=== PATIENT | male | born 2005 | race Caucasian/White ===

== ENCOUNTER 2023-04-23 20:10 | Emergency (ER) | payer BC, OTHER, SELFPAY ==
[2023-04-23 20:27] VITALS: BP 114/70; PULSE 99; RESP 16; TEMP 36.9; O2SAT 99; BMI 17.6
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
[2023-04-23] MEDS: ONDANSETRON 4 MG RAPDIS TABLET SL (21:35)
[2023-04-23] MEDS: ACETAMINOPHEN 500 MG TABLET 1000 MG PO (21:35)
== END 2023-04-23 20:38 | disposition home or self-care (01) ==
PROVIDERS: Emergency Provider Emergency Medicine
DX: S06.0X0A Concussion without loss of consciousness, initial encounter (principal); V47.5XXA Car driver injured in collision with fixed or stationary object in traffic accident, initial encounter
CPT/HCPCS: 99283

== ENCOUNTER 2023-09-19 13:32 | Outpatient (OUT) | payer BC, OTHER, SELFPAY ==
--- OUTSIDE RECORDS SUMMARY | 2023-09-19 13:41 | XMS_ITS | CCD ---
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 Name Role Phone JANETT ACOSTA Unavailable Unavailable HOUSE, JUAN PABLO Unavailable Unavailable HOUSE, JUAN PABLO Unavailable Unavailable SEVERO, JANETT Tovar Unavailable Unavailable HOUSE, JUAN PABLO Unavailable Unavailable HOUSE, JUAN PABLO Unavailable Unavailable HOUSE, DR GARZA Admitting Unavailable HOUSE, DR GARZA Attending Unavailable HOUSE, DR GARZA Consulting Unavailable HOUSE, DR GARZA Primary Care Unavailable HOUSE, DR GARZA Admitting Unavailable HOUSE, DR GARZA Attending Unavailable HOUSE, DR GARZA Consulting Unavailable HOUSE, DR GARZA Primary Care Unavailable MISC, DR TAYLOR Admitting Unavailable HOUSE, DR GARZA Primary Care Unavailable MISC, DR TAYLOR Attending Unavailable MISC, DR TAYLOR Consulting Unavailable ANNETTE, DR CORONADO Consulting Unavailable ANNETTE, DR CORONADO Admitting Unavailable HOUSE, DR GARZA Primary Care Unavailable ANNETTE, DR CORONADO Attending Unavailable Aysha, Jim Consulting Unavailable DANIS, DR DIANE Ramirez Attending Unavailable DANIS, DR DIANE Ramirez Consulting Unavailable DANIS, DR DIANE Ramirez Admitting Unavailable HOUSE, DR GARZA Primary Care Unavailable HOUSE, DR GARZA Admitting Unavailable HOUSE, DR GARZA Attending Unavailable HOUSE, DR GARZA Consulting Unavailable HOUSE, DR GARZA Primary Care Unavailable Lourdes Lombardo Unavailable No, Physician Primary Care Provider Unavailabl e NO, PHYSICIAN Primary Care Unavailable CHANNING MARIE Attending Unavailable IVET GILBERT Attending Unavailable DIANE CEDENO Attending Unavailable DIANE CEDENO Attending Unavailable Marine Devlin Referring Unavailable Marine Devlin Attending Unavailable Marine Devlin Admitting Unavailable Allergies Allergy Classification Reported Allergen(s) Allergy Type Date of Onset Reaction(s) Facility (1 source) Lactose Drug Allergy Unknown [place] Spirits Other Medications Current Medications Medication Drug Class(es) Dates Sig (Normalized) Sig (Original) [id number] 200 actuat albuterol 0.09 mg/actuat metered dose inhaler (2 sources) beta2-Adrenergic Agonist Start: 06-26-2022 End: 07-03-2022 take 2 puff(s) by inhalation four times daily albuterol 90 mcg/actuation inhaler Indications: Bronchitis Inhale 2 (two) puffs 4 (four) times a day for 7 days . 18 g 0 06/26/2022 07/03/2022 Active Start: 01-29-2022 take 2 puff(s) by in halation every four hours as needed Albuterol Sulfate HFA 108 (90 Base) MCG/ACT 2 puffs as needed Inhalation every 4 hrs Jan, Active Brompheniramine / Pseudoephedrine (1 source) alpha-Adrenergic Agonist Start: 01-29-2022 take 5 mL by mouth every six hours as needed Bromfed DM 30-2-10 MG/5ML 5 ml as needed Orally every 6 hrs Jan, Active methylPREDNISolone 4 mg oral tablet (1 source) Corticosteroid Start: 01-29-2022 methylPREDNISolone 4 MG as directed Orally Once a day for 6 days Jan, Active ondansetron 4 mg oral tablet (1 source) Serotonin-3 Receptor Antagonist Start: 01-29-2022 take 1 tablet by mouth every eight hours as needed Zofran ODT 4 MG 1 tablet on the tongue and allow to dissolve Orally every 8 hrs as needed for 4 days Jan, Active Problems Active Problems Problem Classification Problem Date Documented Da te Episodic/Chronic Chronic obstructive pulmonary disease and bronchiectasis (4 sources) Bronchitis, not specified as acute or chronic; Translations: [Bronchitis] Onset: 01-29-2022 Resolved: 01-29-2022 Episodic Immunizations and screening for infectious disease (1 source) Suspected disease caused by 2019-nCoV; Translations: [Suspected COVID-19 virus infection] Episodic Influenza (3 sources) Influenza-like illness; Translations: [Influenza due to unidentified influenza virus with other respiratory manifestations] Onset: 06-26-2022 Episodic Nausea and vomiting (4 sources) Nausea with vomiting, unspecified; Translations: [NAUSEA WITH VOMITING UNSPECIFIED] Onset: 01-12-2022 Episodic Nervous system congenital anomalies (2 sources) 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]; 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)] Onset: 05-07-2022 Chronic Other connective tissue disease (1 source) Muscle pain; Translations: [Myalgia, unspecified site] Episodic Other connective tissue disease (2 sources) Myalgia, unspecified site; Translations: [Myalgia, unspecified site] Onset: 06-26-2022 Episodic Other eye disorders (1 source) Conjunctival hemorrhage, right eye; Translations: [CONJUNCTIVAL HEMORRHAGE RIGHT EYE] Onset: 07-19-2021 Episodic Other screening for suspected conditions (not mental disorders or infectious disease) (4 sources) Encounter for screening, unspecified; Translations: [ENCOUNTER FOR SCREENING UNSPECIFIED] Onset: 06-12-2021 Episodic Unclassified (3 sources) CONTACT W/AND (SUSP) EXPOS COVID-19; Translations: [CONTACT W/AND (SUSP) EXPOS COVID-19] Onset: 07-15-2021 Unclassified (1 source) Contact with and (suspected) exposure to covid-19; Translations: [Contact with and (suspected) exposure to covid-19] Onset: 06-26-2022 Past or Other Problems Problem Classification Problem Date Documented Da te Episodic/Chronic Crushing injury or internal injury (4 sources) Crushing injury of left middle finger, initial encounter; Translations: [CRUSHING INJURY LT MID FINGER INIT] Onset: 09-03-2020 Episodic E Codes: Other specified and classifiable (1 source) Caught, crushed, jammed, or pinched between moving objects, initial encounter; Translations: [CAUGHT CRUSH/PINCH BTWN MOV OBJ INT] Onset: 09-05-2020 Episodic Heart valve disorders (4 sources) Cardiac murmur, unspecified; Translations: [CARDIAC MURMUR UNSPECIFIED] Onset: 04-11-2021 Episodic Other injuries and conditions due to external causes (1 source) Heat exhaustion, unspecified, initial encounter; Translations: [HEAT EXHAUSTION UNS INITIAL ENCNTR] Onset: 01-26-2021 Episodic Superficial injury; contusion (1 source) Contusion of left middle finger with damage to nail, initial encounter; Translations: [CONTUS LT MF W/DAMAGE NAIL INIT] Onset: 09-05-2020 Episodic Syncope (4 sources) Syncope and collapse; Translations: [SYNCOPE AND COLLAPSE] Onset: 01-19-2021 Episodic Unclassified (1 source) CONTACT W/AND (SUSP) EXPOS COVID-19; Translations: [CONTACT W/AND (SUSP) EXPOS COVID-19] Onset: 07-10-2021 Unclassified (1 source) Contact with and (suspected) exposure to covid-19; Translations: [Contact with and (suspected) exposure to covid-19] Onset: 06-26-2022 Viral infection (1 source) COVID-19 Onset: 01-29-2022 Resolved: 01-29-2022 Results Test Name Value Interpretation Reference Range Facility 37on 07-22-[address] an Push salt and fluid with all meals until urine output is clear. Maximize nutrition without skipping meals Maximize sleep with use of melatonin if needed for insomnia Exercise on a regular basis for 30-60 minutes 3 to 4 times a week Work on stress reduction Maximize medical compliance Anticipate symptoms to avoid syncope. Have a scheduled weaning off energy drinks OK with provigil but watch for increased heart rates Genetic are normal Work o vaping cessation Normal [facility] Office Visiton 07-22-2023 Follow-up visit [id number] Tian Mosquera on 2005 M Date Provider Department Center 07/22/2023 IVET PERALES No family history on file Level of Service:94224 CT OFFICE/OUTPATIENT ESTABLISHED MOD MDM 30 MIN Reason for Visit and Comments: Follow-up [317976] - follow up dysautonomia Normal [facility] Consent for Treatmenton 04-07 Consent for Treatment [id number] F Normal [facility] US Breast Unilateral Rt Comp leteon 04-25-2023 US Breast Unilateral Rt Complete Exam Date/Time: 04/25/2023 10:05 EDT Reason for Exam: R22.2 Localized swelling, mass and lump, trunk Report IMPRESSION: BIRADS 1. Negative. EXAMINATION: US Breast Unilateral Rt Complete CLINICAL HISTORY: R22.2 Localized swelling, mass and lump, trunk COMPARISON: None. RESULT: An ultrasound was obtained at all clock face positions and in the central/ retroareolar region of the right breast. Including imaging of the area of lump in the axillary tail. There is no suspicious mass or lesion. Normal-appearing breast tissue. Follow-up: NO FOLLOWUP NEEDED. Board Certified Radiologists. Accredited by the ACR and FDA. MAMMOGRAPHY IS VERY IMPORTANT TO YOUR HEALTH. THE [employer] GUIDELINES RECOMMEND THAT WOMEN 40 YEARS OF AGE AND OLDER SHOULD HAVE A MAMMOGRAM EVERY YEAR. A REMINDER LETTER WILL BE SENT AT THE APPROPRIATE TIME. THIS FACILITY UTILIZES A REMINDER SYSTEM TO ENSURE ALL PATIENTS RECEIVE REMINDER NOTIFICATIONS AT THE APPROPRIATE TIME BASED ON THE RECOMMENDATIONS OF THIS EXAM. THIS INCLUDES REMINDERS FOR ROUTINE SCREENING MAMMOGRAMS, DIAGNOSTIC MAMMOGRAMS IN WHICH THE PATIENT IS ASKED TO RETURN FOR ADDITIONAL VIEWS, OR OTHER BREAST IMAGING INTERVENTIONS WHEN APPROPRIATE. THE PATIENT WILL BE PLACED IN THE APPROPRIATE REMINDER SYSTEM INCLUDING A REMINDER AT THE APPROPRIATE TIME FOR ANY PENDING ADDITIONAL VIEWS. Ordering Provider: Marine Devlin FINAL REPORT Dictated: 04/25/2023 10:10 am Richmond Florence MD Signed (Electronic Signature): 04/25/2023 10:10 am Signed by: Richmond Florence MD Transcribed by: SHARON Technologist: ALEXY Assessment: BI-RADS Category 1-Negative Recommendation: Normal interval follow-up [facility] Physician Orderon 04-10-2023 Physician Order [id number]: 127 [facility] Physician Order [id number]: 127 [facility] 36on 07-24-2022 36 Left a message for priya gilbert to call him with results. [facility] 36 Patient called and stated that he was wondering if his results for his Genetic Testing was in yet. Please call him at [phone] when they are in. Normal [facility] Telephoneon 07-24-2022 Telephone [id number] Tain Mosquera on 2005 M Date Provider Department Center 07/24/2022 IVET PERALES No family history on file [facility] COVID-19, MOLECULARon 2021 SARS-CoV-2 (COVID-19) Ab IA Ql Not detected Normal Not Detected [facility] Comment on above: Result Comment: This test was performed under the FDA's Emergency Use Authorization (EUA). Testing was performed using the [place] ID NOW COVID-19 assay on the ID NOW platform. This test has not been approved for use in asymptomatic patients and its performance in this patient population has not been evaluated. Negative results do not rule out the presence of SARS-CoV-2/COVID-19. Fact sheets for the EUA can be found at the following links: For Healthcare Providers: https://www.fda.gov/media/227619/download For Patients: https://www.fda.gov/media/923577/download COVID-19, Molecularon 2021 SARS-CoV-2 (COVID-19) RdRp gene HENRY+probe Ql (Resp) Not detected Not Detected [facility] Comment on above: This test was perfor med under the FDA's Emergency Use Authorization (EUA). Testing was performed using the [place] ID NOW COVID-19 assay on the ID NOW platform. This test has not been approved for use in asymptomatic patients and its performance in this patient population has not been evaluated. Negative results do not rule out the presence of SARS-CoV-2/COVID-19. Fact sheets for the EUA can be found at the following links: For Healthcare Providers: https://www.fda.gov/media/672046/download For Patients: https://www.fda.gov/media/530267/download POC Influenza A/B, Molecular on 06-26-2022 FLUAV RNA HENRY+probe Ql (Unsp spec) Negative Negative [facility] FLUBV RNA HENRY+probe Ql (Unsp spec) Negative Negative [facility] Interpretation and review of laboratory results Normal [facility] SARS-CoV-2 (COVID-19) RdRp g riri HENRY+probe Ql (Resp)on 06-26-2022 Interpretation and review of laboratory results Normal [facility] SARS-CoV-2 (COVID-19) RNA NA A+probe Ql (Resp)on 01-29-2022 SARS-CoV-2 (COVID-19) RNA HENRY+probe Ql (Unsp spec) Positive [place] Spirits Other Covid-19 PCR (CVDTB)on SARS-CoV-2 (COVID-19) RNA HENRY+probe Ql (Unsp spec) Not detected Normal NOT DETECTED [facility] Comment on above: Result Comment: This test is not yet approved or cleared by the [place] FDA. When there are no FDA-approved or cleared tests available, and other criteria are met, FDA can make tests available under an emergency access mechanism called an Emergency Use Authorization (EUA). The EUA for this test is supported by the [place] of Health and Human Service's (HHS's) declaration that circumstances exist to justify the emergency use of in vitro diagnostics for the detection and/or diagnosis of the virus that causes COVID-19. This EUA will remain in effect (meaning this test can be used) for the duration of the COVID-19 declaration justifying emergency of IVDs, unless it is terminated or revoked by FDA (after which the test may no longer be used). When diagnostic testing is negative, the possibility of a false negative should be considered in the context of a patient's recent exposures and the presence of clinical signs and symptoms consistent with SARS-CoV-2. Performed By: #### C VDTB #### [facility] [address] [place] [address] Dr. Denise Miller BOX TEST SENT OUTon 06-12-20 21 SENT TO REF LAB unknown Normal [facility] Comment on above: Performed By: #### B OX #### [facility] [address] [place] [address] Dr. Denise Miller ECHOCARDIO M/2D COMPLETEon 1 ECHOCARDIO M/2D COMPLETE Patient: LACIE MOSQUERA Exam Date: 04/11/2021 : 2005 Gender:M Ordering : DR JUAN PABLO GUZMÁN D.O. Admission #: [id number] Family : Order #: [id number] CLICK HERE TO VIEW EXAM ECHOCARDIOGRAM REPORT PROCEDURE: CARDIO PULMONARY ECHOCARDIO M/2D COMP INDICATIONS: New cardiac murmur COMPARISON: None. DESCRIPTION: COMPLETE ECHOCARDIOGRAM Real-time transthoracic echocardiography with 2D, M-mode, spectral and color flow Doppler performed. QUALITY: Technical quality was good. LEFT VENTRICLE: Normal chamber size. Normal left ventricular wall thickness. No regional wall motion abnormalities. LV EF: Normal left ventricular ejection fraction, (>55%). DIASTOLIC: Normal diastolic function. ATRIAL SEPTUM: Visually appears intact. LEFT ATRIUM: Normal chamber size. RIGHT ATRIUM: Normal chamber size. RIGHT VENTRICLE: Normal chamber size. Normal systolic function. TRICUSPID VALVE: Normal mobility and thickness. No stenosis with trivial regurgitation. MITRAL VALVE: Normal mobility and thickness. No mitral valve prolapse. No evidence of mitral valve stenosis. Trivial mitral regurgitation. AORTIC VALVE: Normal trileaflet appearance. Normal leaflet mobility. No evidence of aortic valve stenosis. AORTIC ROOT: Normal diameter and appearance. Ascending aorta is normal in size. Aortic arch is normal in size. PULMONIC VALVE: Normal thickness and mobility. No stenosis. Trivial regurgitation. PERICARDIUM: No evidence of pericardial effusion. IVC: Within normal limits. CONCLUSION: Global left ventricular systolic function is normal; visually estimated ejection fraction is 55 to 60%. No regional wall motion abnormalities. Right ventricle is normal in size and systolic function. No significant valvular abnormalities. Adult Echocardiography Procedure Report Left Ventricle LVEDD (3.7 - 5.6 cm): 4.51 cm LVESD (2.2 - 4.0 cm): 3.21 cm LVIVS thickness (0.6 - 1.2 cm): 9.23 mm LVPW thickness (0.5 - 1.0 cm): 9.27 mm e': 11.30 cm/s E - e': 7.70 LVOT Area (cm2): 4.52 cm2 LVOT Diameter 2.40 cm Left Ventricular Ejection Fraction: 55.50 % Left Atrium Left Atrium Systolic Dimension: 2.50 cm Mitral Valve MV E to A Ratio: 2 Mitral Valve A-Wave Peak Velocity: 43.90 cm/s Mitral Valve E-Wave Peak Velocity: 87.40 cm/s Deceleration Time: 190 ms Right Ventricle Aorta AO Root Diam: 3.00 cm Aortic Valve AoV Area (Peak Alvarez): 3.37 cm2 Peak Velocity(Antegrade Flow): 72.10 cm/s Peak Gradient(Antegrade Flow): 2 mm[Hg] Tricuspid Valve Pulmonic Valve Peak Velocity: 101.00 cm/s Peak Gradient: 4 mm[Hg] Right Atrium Dictated by: Mono Barajas M.D. on 04/12/2021 at 12:08 Approved by: Mono Barajas M.D. on 04/12/2021 at 12:11 Normal [facility] CBC AUTO DIFFon 01-19-2021 BASO # 0.0 103/ul Normal 0.0-0.1 [facility] Comment on above: Performed By: #### C BC #### [facility] [address] [id number] Jones Veronika Basophils/100 WBC (Bld) 0.6 % Normal 0.2-2.0 [facility] Comment on above: Performed By: #### C BC #### [facility] [address] [place] [address] Jones Veronika EO # 0.1 103/ul Normal 0.0-0.7 [facility] Comment on above: Performed By: #### C BC #### [facility] [address] [place] [address] Jones Veronika Eosinophils/100 WBC (Bld) 1.5 % Normal 0.9-7.0 [facility] Comment on above: Performed By: #### C BC #### [facility] [address] [place] [address] Jones Veronika Erythrocyte distribution width (RBC) [Ratio] 12.6 % Normal 11.0-15.0 [facility] Comment on above: Performed By: #### C BC #### [facility] [address] [place], [place] [id number] [place] Veronika Hematocrit (Bld) [Volume fraction] 41.4 % Critically low 42.0-54.0 [facility] Comment on above: Performed By: #### C BC #### [facility] [address] [place], [place] [id number] [place] Veronika Hemoglobin (Bld) [Mass/Vol] 13.6 g/dL Critically low 14.0-18.0 [facility] Comment on above: Performed By: #### C BC #### [facility] [address] [place] [address] Jones Veronika IG # 0.01 10e3/ul Normal 0.00-0.03 [facility] Comment on above: Performed By: #### C BC #### [facility] [address] [place] [address] Jonesbrendon Banda IG % 0.1 % Normal 0.0-0.5 [facility] Comment on above: Performed By: #### C BC #### [facility] [address] [place], [place] [id number] [place] Veronika LYMPH # 1.7 103/ul Normal 1.2-3.8 [facility] Comment on above: Performed By: #### C BC #### [facility] [address] [place] [address] Jones Banda Lymphocytes/100 WBC (Bld) 24.9 % Normal 20.5-60.0 [facility] Comment on above: Performed By: #### C BC #### [facility] [address] [place] [address] Jones Banda MANUAL DIFF REQ NO Normal [facility] Comment on above: Performed By: #### C BC #### [facility] [address] [place] [address] Jonesbrendon Banda MCH (RBC) [Entitic mass] 29.5 pg Normal 25.9-34.0 [facility] Comment on above: Performed By: #### C BC #### [facility] [address] [place] [address] Jones Banda MCHC (RBC) [Mass/Vol] 32.9 g/dL Normal 29.9-35.2 [facility] Comment on above: Performed By: #### C BC #### [facility] [address] [place] [address] Jonesbrendon Banda MCV (RBC) [Entitic vol] 89.8 fL Normal 80.0-94.0 [facility] Comment on above: Performed By: #### C BC #### [facility] [address] [place] [address] Jones Veronika MONO # 0.5 103/ul Normal 0.3-0.8 [facility] Comment on above: Performed By: #### C BC #### [facility] [address] [place], [place] [address] Jonesbrendon Banda Monocytes/100 WBC (Bld) 7.1 % Normal 1.7-12.0 [facility] Comment on above: Performed By: #### C BC #### [facility] [address] [id number] Jonesbrendon Hsiehen NEUT # 4.5 103/ul Normal 1.4-6.5 [facility] Comment on above: Performed By: #### C BC #### [facility] [address] [place], [place] [address] Jones Banda Neutrophils/100 WBC (Bld) 65.8 % Normal 43.0-75.0 [facility] Comment on above: Performed By: #### C BC #### [facility] [address] [place], [place] [address] Jones Banda Platelet mean volume (Bld) [Entitic vol] 10.2 fL Normal 9.5-13.5 [facility] Comment on above: Performed By: #### C BC #### [facility] [address] [place], [place] [address] Jonesbrendon Hsiehen PLT 260 103/ul Normal 150-450 [facility] Comment on above: Performed By: #### C BC #### [facility] [address] [place], [place] [address] [place] Veronika RBC 4.61 106/ul Critically low 4.70-6.10 [facility] Comment on above: Performed By: #### C BC #### [facility] [address] [place], [place] [address] Jonesbrendon Hsiehen WBC 6.8 103/ul Normal 4.0-11.0 [facility] Comment on above: Performed By: #### C BC #### [facility] [address] [place], [place] [id number] [place] Veronika PROF 14(COMP METB)on 021 Albumin [Mass/Vol] 4.4 g/dL Normal 3.5-5.0 [facility] Comment on above: Performed By: #### T 4, CMP, TSH #### [facility] [address] [address] [place] Veronika Albumin/Globulin [Mass ratio] 1.2 {ratio} Normal [facility] Comment on above: Performed By: #### T 4, CMP, TSH #### [facility] [address] [address] Jones Veronika ALP [Catalytic activity/Vol] 129 U/L Critically high 38-126 [facility] Comment on above: Performed By: #### T 4, CMP, TSH #### [facility] [address] [address] Jones Veronika ALT [Catalytic activity/Vol] 9 U/L Critically low 21-72 [facility] Comment on above: Performed By: #### T 4, CMP, TSH #### [facility] [address] [address] [place] Veronika Anion gap [Moles/Vol] 15.6 mmol/L Normal [facility] Comment on above: Performed By: #### T 4, CMP, TSH #### [facility] [address] [address] [place] Veronika AST [Catalytic activity/Vol] 16 U/L Critically low 17-59 [facility] Comment on above: Performed By: #### T 4, CMP, TSH #### [facility] [address] [address] [place] Veronika Bilirubin [Mass/Vol] 0.4 mg/dL Normal 0.2-1.3 [facility] Comment on above: Performed By: #### T 4, CMP, TSH #### [facility] [address] [address] [place] Veronika Calcium [Mass/Vol] 9.2 mg/dL Normal 8.4-10.2 [facility] Comment on above: Performed By: #### T 4, CMP, TSH #### [facility] [address] [address] [place] Veronika Chloride [Moles/Vol] 104 mmol/L Normal 98-107 [facility] Comment on above: Performed By: #### T 4, CMP, TSH #### [facility] [address] [address] [place] Veronika CO2 [Moles/Vol] 28.4 mmol/L Normal 22.0-30.0 [facility] Comment on above: Performed By: #### T 4, CMP, TSH #### [facility] [address] [address] [place] Veronika Creatinine [Mass/Vol] 0.90 mg/dL Normal 0.66-1.25 [facility] Comment on above: Performed By: #### T 4, CMP, TSH #### [facility] [address] [address] [place] Veronika EGFR-AF LIBERIAN >60 Normal >=60 [facility] Comment on above: Performed By: #### T 4, CMP, TSH #### [facility] [address] [address] [place] EGFR-NON AF LIBERIAN >60 Normal >=60 [facility] Comment on above: Performed By: #### T 4, CMP, TSH #### [facility] [address] [address] [place] Globulin (S) [Mass/Vol] 3.6 g/dL Normal [facility] Comment on above: Performed By: #### T 4, CMP, TSH #### [facility] [address] [place] [address] [place] Veronika Glucose [Mass/Vol] 101 mg/dL Normal 74-106 [facility] Comment on above: Performed By: #### T 4, CMP, TSH #### [facility] [address] [place] [address] [place]onika Potassium [Moles/Vol] 4.0 mmol/L Normal 3.4-5.0 [facility] Comment on above: Performed By: #### T 4, CMP, TSH #### [facility] [address] [address] [place]ika Protein [Mass/Vol] 8.0 g/dL Normal 6.1-8.2 [facility] Comment on above: Performed By: #### T 4, CMP, TSH #### [facility] [address] [place] [address] [place] Veronika Sodium [Moles/Vol] 144 mmol/L Normal 137-145 [facility] Comment on above: Performed By: #### T 4, CMP, TSH #### [facility] [address] [place] [address] [place]onika Urea nitrogen [Mass/Vol] 9.0 mg/dL Normal 6.4-19.3 [facility] Comment on above: Performed By: #### T 4, CMP, TSH #### [facility] [address] [place] [address] [place] Veronika Urea nitrogen/Creatinin e [Mass ratio] 10.0 mg/mg Normal [facility] Comment on above: Performed By: #### T 4, CMP, TSH #### [facility] [address] [place] [address] [place] Veronika T4on 01-19-2021 T4 [Mass/Vol] 8.60 ug/dL Normal 5.53-11.00 [facility] Comment on above: Performed By: #### T 4, CMP, TSH #### [facility] [address] [place] [address] [place] Veronika TSHon 01-19-2021 TSH 0.393 uIU/mL Critically low 0.430-3.750 [facility] Comment on above: Performed By: #### T 4, CMP, TSH #### [facility] [address] [place] [address] [place]onika TSH RANGE SEE BELOW Normal [facility] Comment on above: Result Comment: <0.3 4 UIU/ml HYPERTHYROID 0.34-5.60 UIU/ml EUTHYROID >5.60 UIU/ml HYPOTHYROID Performed By: #### T 4, CMP, TSH #### [facility] [address] [place] [address] [place] Veronika XR FINGER MIN 2 VIEWSon - XR FINGER MIN 2 VIEWS EXAM: XR FINGER MIN 2 VIEWS 09/03/2020 12:18 AM EST OH001 CLINICAL STATEMENT: Traumatic injury COMPARISON: No prior studies are available at the time of dictation. TECHNIQUE: 3 views AP, oblique and lateral views of the left middle are submitted. FINDINGS: Distal finger soft tissue emphysema suggesting laceration. No radiopaque foreign body. The osseous structures are intact and in anatomic alignment. There is no acute fracture and/or dislocation. The joint spaces are preserved. There is no significant joint effusion. Soft tissues are unremarkable. Bone mineralization is within normal limits for the patient's age. IMPRESSION: No acute fracture and/or dislocation. Distal finger soft tissue emphysema suggesting laceration. FOLLOW UP: Follow-up as clinically indicated. Electronically authenticated by: JIM SAID Date: 2020-09-03 01:11 Normal [facility] Progress Noteon 06-12-2018 Wrapper Leaf Inspector Authentication Interface Message Text History of Presenting Illness:Lacie is a 13 y.o. male who has been experiencing episodes of dizziness forthe past five years. the episodes have become more frequent over the past 2-3months. He was referred to us by Juan Pablo Guzmán DO for further evaluation. He isaccompanied by his mother.Lacie states that when he has changes in position, he will become dizzy,vision will tunnel in. He will get associated headaches. The episode lastsseconds and resolves with bracing himself or sitting down. There is noassociated chest pain or palpitations and he has never been syncopal. Theepisodes have been occurring more frequently recently, with his last episodeyesterday. He was evaluated by his PCP for these symptoms and [facility].He also reports unrelated episodes of palpitations. When he is at rest herelates sensation of his heart rate increasing and pounding harder. They lastabout 5 minutes and spontaneously resolve. He has not counted his heart rateduring this time. The episodes have been occurring 1-2x/day.His mother is concerned about his stature and body habitus. She wonders if hehas some sort of Marfan's/connective tissue disorder. He is thin and he reportsthat he has a good appetite, but struggles to keep weight on. He states that hehas elastic like skin and is flexible/double jointed. About 5 years ago, he wasevaluated in the ED for symptoms of dizziness, chest pain and constipation. Hewas diagnosed with Spina bifida occulta on accident during different work up.There was no tethered cord.Lacie drinks about 64 oz of water daily. He avoids caffeine containingbeverages. He is active, keeps up with his peers, and has been growingNormally. His mother believes he has had recent routine blood work, with allnormal results (tests performed unknown)Non-Cardiac ROS:GENERAL: No weight loss, lethargy, or fevers.HEENT: No nasal congestion, ear infection, or eye redness/dischargeRESPIRA TORY: Negative for cough, wheezing, or shortness of breathGI: No vomiting, diarrhea, or constipationMUSCULOSKELE LEA: Negative for joint or muscle pain or swellingSKIN: Negative for lesions or rashesAll other systems reviewed and are negative except as detailed above.Currently on PCN, enlarged lymph node, think it is due to a wisdom tooth comingin. Since the start of ATB, lymph node has decreased in sizePast Medical/Surgical History:Lacie has no known chronic medical illnesses and has never had surgery. He washospitalized a few years ago for phenobarbital overdose (accidentally given anadult dose in the [facility] ED and was transferred to [facility]).Medications:Current Outpatient MedicationsMedication Sig Dispense Refill ibuprofen (MOTRIN INFANTS DROPS) 40 MG/ML suspension drops Take by mouth 4times daily. Indications: Mild to Moderate Pain penicillin V potassium (VEETID) 250 MG tablet TAKE 1 TABLET BY MOUTH FOURTIMES A DAY 0 Polyethylene Glycol 3350 (MIRALAX PO) Take by mouth.No current facility-administered medications for this visit.Allergies:No Known AllergiesFamily History:The family history is negative for congenital heart disease, sudden unexplaineddeath, arrhythmia, long QT syndrome, unexplained drowning, aneurysms, hearttransplantation or pacemaker requirement at a young age on the maternal orpaternal side of the family.Social History:Lives at home with family, mom smokes outside the home, his father committedsuicide a couple years ago. School grade: 10th.Physical Exam: BP 119/74 (BP Site: Right Arm, Patient Position: Supine, BP CuffSize: Adult) Pulse 80 Resp 17 Ht 165.1 cm Wt 43.1 kg BMI 15.81kg/m GENERAL APPEARANCE: alert, interactive, in no distress, thin and lankySKIN: Acyanotic, no rash, loose, very elastic skinSKEL: No pectus, hypermobile joints, no scoliosisHEENT: Normal sclera, moist mucus membranes.OROPHARYNX: Normal palate, midline uvulaPULM: Lungs are clear to auscultation and there is no grunting, flaring orretractingCARDIAC: The precordium is normally active. No heave or thrill. The rate wasregular with normal S1 and a physiologically splitting S2. No systolic,diastolic, or continuous murmurs. Normal heart rate variability with position.No clicks, rub or gallop rhythm.ABDOMEN: Soft, non-tender with liver edge not palpable below the right costalmarginEXTREMITIES: Normal upper and lower extremity pulses with no brachio-femoraldelay; normal perfusion. No clubbing or peripheral edema,Studies:1. EKG (06/15/2018): Normal sinus rhythm, ventricular rate of 60 beats perminute. No pre-excitation, or ectopy. Normal QTc interval. No abnormalities inaxes, intervals, or voltages (Normal ECG)2. Echocardiogram [[facility]] (05/2018 ): Normal cardiac structure and function.Impression:Vaso vagal near syncopeSpina bifida occultaMild hypermobility, no of features of Marfan's syndromePlan:1. Medications: No cardiac medications2. SBE Prophylaxis: No3. Activity: No restrictions4. No cardiac contraindication to surgery or general anesthesia5. Studies pending: None6. Return appointment and studies: As neededDiscussion:Lacie is a 13 y.o. male here for evaluation for syncope. Based on the clinicalhistory and cardiac findings as detailed above, I do not think his symptoms arecardiac in etiology. His echocardiogram from [facility] was normal. Lacie's symptomsare suggestive of vasovagal near syncope for which the hallmark of therapy isintentional fluid hydration and education. I advised that with the onset ofsymptoms he sit or lay down to prevent a syncopal event and/or traumatic injuryassociated with falling. I had a detailed discussion with Lacie and his motherregarding the prognosis and group home management of this entity. This includedincrease in fluid intake ensuring clear urine, increase in salt intake, and legand arm flexing prior to getting up. Lacie should also avoid caffeinecontaining beverages as these can have a diuretic effect.Do to his mild hypermobility and history of spina bifida occulta, I would liketo see him back for follow up in 1-2 years with echocardiogram. I discussed withthe family that I do not think her warrants genetic testing at this time and wewill revisit the discussion at his next follow up, based on his findings.Lacie can be treated as a normal from a cardiac perspective. There are nospecial diet or activity restrictions.Mitch Buenrostro and evaluated patient in collaboration w/ Ms Karlee. Symptoms typical forvasovagal syncope. No family history suggestive of MFN or other connectivetissue disorder. Normal cardiac exam but patient is very thin and his cervicallymph nodes are impressive (I emphasized the need to follow those up closely w/his primary care doc). Should have follow up visit and echo (in a pediatricecho lab - NOT [facility] or other adult lab) in 1-2 years.Janett Acosta M.D.Chain Testing Machine Operator Normal [facility] Vital Signs Date Time Vital Sign Value Performing Clinician Facility 06-26-2022 13:11-0500 Body height 188 cm Channing Marie DO Work Phone: [facility] 06-26-2022 13:11-0500 Body mass index (BMI) [Ratio] 17.33 kg/m2 Channing Marie DO Work Phone: [facility] 06-26-2022 13:11-0500 Body temperature 98.49 [degF] Channing Marie DO Work Phone: [facility] 06-26-2022 13:11-0500 Body weight 61.24 kg Channing Marie DO Work Phone: [facility] 06-26-2022 13:11-0500 Diastolic blood pressure 75 mm[Hg] Channing Marie DO Work Phone: [facility] 06-26-2022 13:11-0500 Heart rate 98 /min Channing Marie DO Work Phone: [facility] 06-26-2022 13:11-0500 Respiratory rate 16 /min Channing Marie DO Work Phone: [facility] 06-26-2022 13:11-0500 SaO2% (BldA) [Mass fraction] 98 % Channing Marie DO Work Phone: [facility] 06-26-2022 13:11-0500 Systolic blood pressure 109 mm[Hg] Channing Marie DO Work Phone: [facility] 01-29-2022 16:00-0400 Body height 187.96 cm Lourdes Lombardo Other [facility] 01-29-2022 16:00-0400 Body mass index (BMI) [Ratio] 16.05 kg/m2 Lourdes Whiteault Other [facility] 01-29-2022 16:00-0400 Body temperature 97.2 [degF] Lourdes Grupo Other [facility] 01-29-2022 16:00-0400 Body weight 56.7 kg Lourdes Whiteault Other [facility] 01-29-2022 16:00-0400 Respiratory rate 18 /min Lourdes Whiteault Other [facility] 01-29-2022 16:00-0400 SaO2% (BldA) [Mass fraction] 98 % Lourdes Grupo Other [facility] Encounters Encounter Date Encounter Type Care Provider Facility Start: 09-11-2023 End: 09-11-2023 ambulatory DIANE D BEJ Not Available Start: 07-22-2023 End: 07-22-2023 ambulatory IVET GILBERT [facility] Start: 07-01-2023 End: 07-01-2023 ambulatory DIANE D BEJ Not Available Start: 04-25-2023 End: 04-26-2023 ambulatory Marine Devlin Facility:[facility] Start: 06-26-2022 End: 06-26-2022 ambulatory PHYSICIAN JU [facility] Start: 06-26-2022 End: 06-26-2022 Office outpatient visit 15 minutes Channing Marie DO Work Phone: [facility] [place] Comment on above: Bronchitis (Primary Dx); Suspected COVID-19 virus infection; Myalgia; Influenza-like illness Start: 01-29-2022 End: 01-29-2022 ambulatory Lourdes Lombardo Other [facility] Start: 01-29-2022 Office outpatient visit 15 minutes Lourdes Lombardo [facility] Start: 07-18-2021 End: 07-18-[address] DIANE MOSCOSO Facility:[facility] Start: 07-10-2021 End: 07-10-[address] JUAN PABLO GUZMÁN Facility:[facility] Start: 06-12-2021 End: 06-13-[address] DOCTOR ROY Facility:[facility] Start: 04-11-2021 End: 04-12-[address] JUAN PABLO GUZMÁN Facility:[facility] Start: 01-19-2021 End: 01-20-[address] JUAN PABLO GUZMÁN Facility:[facility] Start: 09-03-2020 End: 09-03-[address] IVONNE BRYANT Facility:[facility] Start: 06-12-2018 End: 06-12-2018 Patient encounter procedure JANETT B SEVERO [facility] Start: 05-07-2018 End: 05-07-2018 Patient encounter procedure JANETT B SEVERO [facility] Procedures Date Procedure Procedure Detail Performing Clinician Start: 06-26-2022 Infectious agent dna /rna influenza 1st 2 types Channing Marie DO Work Phone: Start: 06-26-2022 Sars-cov-2 detection by dna/rna Channing Marie DO Work Phone: Plan of Treatment Date Care Activity Detail Author Start: 03-07-2022 Influenza vaccination Sequenti al Influenza Vaccine (#1) [facility] Start: 2021 Hepatitis C screening Hepatitis C Sc reening [facility] Start: 2018 HIV screening HIV Screening [facility] Start: 2015 Depression screening using PHQ-9 (Patient Health Questionnaire 9) score Depression Screening (PHQ-2/9) [facility] Start: 2014 Vaccination for denilson n papillomavirus HPV Vaccines (1 - Male 2-dose series) [facility] Start: 2006 History and physical examination, annual for health maintenance Wellness Visit [facility] Start: 2003 COVID-19 Vaccine (#1) COVID-19 Vacci ne (#1) [facility] Start: 2003 Tetanus vaccination Tetanus: Every 1 0yrs [facility] Payers Date Payer Category Payer Medicaid [employer] [id number] 2022-Present [phone] [address] [place] [address] [id number] 2022 Medicaid [id number] 2021 [facility] [id number] 2021 Unknown JANEL ARGUETA/PREF/HMO/PPO [id number] 2021-Present [phone] [address] [place] [address] [id number] 2003 Unknown [id number] [id number]. 593 2003 Unknown [id number] 2.16.840.1.965529.3.579.2. 593 2003 Unknown [id number] 2.16.840.1.363971.3.579.2. 593 2003 Unknown [id number] 2.16.840.1.857961.3.579.2. 593 2003 Unknown [id number] 2.16.840.1.881887.3.579.2. 593 2003 Unknown [id number] 2.16.840.1.607300.3.579.2. 593 2003 Unknown [id number] 2.16.840.1.889049.3.579.2. 903 2003 Unknown [id number] 2.16.840.1.085149.3.579.2. 1259 2003 Unknown [id number] 2.16.840.1.110026.3.579.2. 1259 2003 Unknown [id number] 2.16.840.1.506214.3.579.2. 727 1970 Unknown [id number] 2.16.840.1.868299.3.579.2. 479 1970 Unknown [id number] 2.16.840.1.445548.3.579.2. 479 1959 Unknown [id number] 1959 Unknown [id number] Social History Date Type Detail Facility Sex Assigned At [facility] Start: 06-26-2022 Tobacco smoking status IDIS Never smoked tobacco [facility] Start: 06-26-2022 Tobacco use and exposure Smokeless tobacco non-user [facility] Start: 06-26-2022 Alcohol intake Current drinke r of alcohol (finding) [facility] Start: 06-26-2022 Alcohol Comment rare [facility] Start: 2003 Sex Assigned At Not on file [facility] Start: 06-16-2022 End: 06-26-2022 Exposure to SARS-CoV-2 (event) Yes [facility] Progress note 07-22-2023 Note Date & Type Note Facility 07-22-2023 Note Juan Pablo Guzmán MD [address] [facility] [address] July 22, 2023 Patient: Lacie Mosquera Date of : 2005 Date of Visit: 07/22/2023 Dear Juan Pablo Guzmán MD: I had the pleasure of seeing Lacie Mosquera at our pediatric cardiology clinic on 07/22/2023 for evaluation of Chronic dysautonomia and possible connective tissue disease. Lacie is a 18-1/2-year-old last seen by me in late 2021 and who underwent genetic testing at her last evaluation which proved to be negative for any type of connective tissue disease. Despite this he clearly has evidence of hypermobility and chronic dysautonomia and there are many conditions that may have associated connective tissue disease that are not picked up on these genetic studies. I am told that he was started on Provigil and at low-dose this has helped some of his symptoms. He was wondering about going up but he is still having significant postural orthostatic tachycardic symptoms with excessive heart rate palpitations intermittently. Today told me he was averaging at least 1 heavily caffeinated beverage a day for some time now and has been making an effort to decrease consumption of these stimulating drinks. He is down to 4 cans/week but has encountered significant headaches which may be a side effect of caffeine withdrawal. He may need to slow down the rate at which she is weaning these medications or drinks. He is also experienced some dizziness but at least has not had any loss of consciousness. I am told that he has been trying to exercise roughly 2 times a week and has been working on his conservative therapy for his dysautonomia. On average she is drinking 80 ounces of water per day with increased salt intake and he denies skipping meals. He has at times had difficulties with insomnia but is trying not to use any sleep aids. He is being evaluated for chronic narcolepsy in the upcoming weeks especially in light of his mother having the diagnosis. He tells me that he is vaping nicotine products on a daily basis and is currently living in his own apartment. 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 And told that he can experience some visual abnormalities during his dizzy spells and does have back and neck discomfort and occasional knee pain. His noncardiac review of systems is remarkable for intermittent sharp abdominal pain located in the periumbilical area which typically resolve spontaneously. He denies constipation but does admit to being lactose intolerant. Current Outpatient Medications Medication Sig Dispense Refill modafinil (Provigil) 100 mg tablet 100 mg in the morning. No current facility-administered medications for this visit. No Known Allergies Review of Systems - Respiratory ROS, Gastrointestinal ROS, Genitourinary ROS, Hematologic, Endocrinologic ROS, Musculoskeletal, Immunologic, Infectious ROS, Neurologic ROS are unremarkable. On physical exam the patient was alert, cooperative, acyanotic and in no apparent distress. Vitals: 07/22/23 1123 07/22/23 1124 07/22/23 1125 BP: 116/68 110/70 109/76 BP Location: Right arm Right arm Right arm Patient Position: Lying Sitting Standing Pulse: 63 91 101 SpO2: 99% Weight: 65.8 kg (145 lb 1 oz) Height: 1.891 m (6' 2.45 ) Orthostatic assessment was abnormal by heart rate response consistent with postural orthostatic tachycardia. HEENT was normal. Lungs were clear to auscultation. Neck exam demonstrated no JVD or ARIELLA. Chest was normal active without thrill. There was a regular rate and rhythm with a normal S1 and S2 with physiologic splitting of the S2. No murmurs were heard in systole or diastole. Abdominal exam was normal with no hepatosplenomegaly. Peripheral extremities demonstrated symmetrical pulses and pulse pressure without BF delay. No clubbing, cyanosis, or edema was seen with normal capillary refill. Positive arachnodactyly and some areas of increased flexibility with a positive thumb sign and skin hyper distensibility. Genetic testing demonstrated no pathogenic mutation or Marfan syndrome and no known abnormality connective tissue. There was a variant of unknown significance which was felt to be of no consequence. In conclusion, Lacie Is a 18 and [id number] male who was last seen by me well over a year ago and he does have symptoms compatible with postural orthostatic tachycardia syndrome and chronic dysautonomia with positional dizziness although he states that his episodes have not been as bad and he has had no recent episodes of syncope. He clearly has been dealing with concerns over possible connective tissue disease however his genetics came back unremarkable for now. He did get started on Provigil because of his chronic fatigue especially in light of the maternal history of narc (more content not included)... [facility] Instructions 06-26-2022 Patient InstructionsAttachments Note Date & Type Note Facility 06-26-2022 Instructions Channing Marie DO - 06/26/2022 2:00 PM EST For additional education on how to use an inhaler properly, watch the short video accessible from the following link: www.use-inhalers.[employer]. The following attachments cannot be sent through Care Everywhere.Bronchitis (Sinhala)Asthma or COPD: Using a Metered-Dose Inhaler (Sinhala)URI (Upper Respiratory Infection) (Sinhala)documented in this encounter [facility] History of Present illness Narrative 06-26-2022 Channing Marie DO - 06/26/2022 1:23 PM EST Note Date & Type Note Facility 06-26-2022 History of Presen t illness Narrative PATIENT NAME: Lacie Mosquera [facility]: [facility] [facility] [address] DATE OF VISIT: 06/26/2022 DATE OF : 2005 SS: [id number] PROVIDER: Channing Marie DO SUBJECTIVE 17 y.o. male to the clinic for complaint of Chief Complaint Patient presents with URI Reports chest congestion, cough and fatigue. Symptoms started 06/23/22 HPI: Chest congestion, cough, fatigue, upper respiratory symptoms, myalgia, sore throat for 3 days. He thinks he may have had a fever based on symptoms. Fever was present only 1 night. Feeling intermittently hot and cold where his symptoms. ROS: Constitutional: See HPI above. Head/Ear/Nose/Throat: See HPI above. Respiratory: Denies shortness of breath. Cardiovascular: Denies chest pain. Gastrointestinal: Denies diarrhea, abdominal pain, nausea, vomiting. Musculoskeletal: Admits to myalgia. Neurological: Denies headache. Denies focal neuro symptoms. Social History Socioeconomic History Marital status: Single Tobacco Use Smoking status: Never Smokeless tobacco: Never Vaping Use Vaping Use: Every day Substances: Nicotine Substance and Sexual Activity Alcohol use: Yes Comment: rare Drug use: Yes Types: Marijuana History reviewed. No pertinent past medical history. History reviewed. No pertinent family history. No current outpatient medications on file prior to visit. No current facility-administered medications on file prior to visit. No Known Allergies EXAM: BP 109/75 (BP Location: Left arm, Patient Position: Sitting, BP Cuff Size: Adult) Pulse 98 Temp 98.5 F (36.9 C) (Temporal) Resp 16 Ht 6' 2 Wt 61.2 kg (135 lb) SpO2 98% BMI 17.33 kg/m Constitutional: Vital signs reviewed. Well-appearing. No distress. Psychiatric: Mental status is appropriate. Normal affect. Skin: Warm and dry. No rash noted. Eyes: Conjunctiva clear. No photophobia. HENT: No hoarseness, drooling, trismus or stridor. No tonsil enlargement or exudate. No abscess. Postnasal drainage is present. Tympanic membranes are normal. Thorax/ Respiratory: Respiratory effort non-labored. Speaks in full sentences without dyspnea. Lungs auscultation reveals expiratory rhonchi left base and diffuse expiratory wheeze in all nolan. Cardiovascular: Good peripheral circulation. H RRR with no murmurs or ectopy. Musculoskeletal: No gross abnormalities. Neck has normal ROM without hesitation or pain response. Neurologic: Alert and appropriately conversant. No ataxia. No dysarthria. No gross facial motor asymmetry. PROCEDURE Procedures RESULTS No results found for this or any previous visit (from the past 168 hour(s)). Diagnosis: The primary encounter diagnosis was Suspected COVID-19 virus infection. Diagnoses of Bronchitis and Myalgia were also pertinent to this visit. Plan: 1. Suspected COVID-19 virus infection COVID-19, Molecular 2. Bronchitis 3. Myalgia POC Influenza A/B, Molecular No follow-ups on file. ADDITIONAL CLINICAL COMMENTS / MEDICAL DECISION MAKING / PLAN: Test for influenza and COVID were negative in urgent care today. Discussed influenza-like illness with upper respiratory symptoms and concurrent bronchitis syndrome. Counseled him on discontinuing vaping due to lung damage that that activity is known to cause. Prescribed albuterol inhaler. Recommended use of dextromethorphan to help reduce cough frequency. Provided appropriate work note. ORDERS PLACED THIS VISIT Orders Placed This Encounter Procedures POC Influenza A/B, Molecular COVID-19, Molecular MEDICATION LIST AT END OF VISIT No current outpatient medications on file. No current facility-administered medications for this visit. Channing Marie documented in this encounter [facility] Evaluation note 01-29-2022 Note Date & Type Note Facility 01-29-2022 Evaluation note Encounter Date Diagnosis Assessment Notes Jan, COVID-19 (ICD-10 - U07.1) Today you tested positive for the COVID virus. This mean you need to follow all CDC quarantine guidelines found at coronavirus[place].gov. It is important to rest, increase fluids, and stay at home. Recommend contacting primary care provider and discussing best course of action if you have chronic health conditions. Jan, Bronchitis (ICD-10 - J40) Take medications as directed. Rest and increase fluid intake. Take meds with food to prevent stomach upset. Use inhaler as needed for coughing spells and SOB. It is better to use inhaler a few times a day over the next 2-3 days. Follow up with primary care provider if symptoms do not improve with treatment plan, although it may take a few weeks for the cough to go away Jan, Other Additional time spent conducting pre-visit phone call, screening for symptoms, instructions on social distancing, application and removal of PPE, and cleaning of examination room, equipment and supplies was performed. Patient education given for testing methodology and results. Patient care instructions given in writing by [facility] document. [facility] Other Evaluation note Note Date & Type Note Facility Evaluation note Diagnosis Bronchitis- Primary Bronchitis, not specified as acute or chronic Suspected COVID-19 virus infection Myalgia Unspecified myalgia and myositis Influenza-like illness documented in this encounter [facility] History general Narrative - Reported Note Date & Type Note Facility History general Narrative - Reported Type Surgical History right leg [facility] Other Summary Purpose Family History No Family History Records FoundNo Family History Records FoundNo Family History Records FoundNo Family History Records FoundNo Family History Records FoundNo Family History Records Found Advance Directives No Advanced Directives Records FoundNo Advanced Directives Records FoundNo Advanced Directives Records FoundNo Advanced Directives Records FoundNo Advanced Directives Records FoundNo Advanced Directives Records Found Additional Source Comments (unrecognized sect ion and content) No Status Records FoundNo Status Records FoundNo Status Records FoundNo Status Records FoundNo Status Records FoundNo Status Records Found INFORMATION SOURCE (unrecogn ized section and content) DATE CREATED AUTHOR 06/17/2018 [facility] DATE CREATED AUTHOR AUTHOR'S ORGANIZ ATION 07/19/2021 [facility] DATE CREATED AUTHOR AUTHOR'S ORGANIZ ATION 06/29/2022 [facility] DATE CREATED AUTHOR AUTHOR'S ORGANIZ ATION 07/23/2023 [facility] DATE CREATED AUTHOR AUTHOR'S ORGANIZ ATION 09/12/2023 [facility] EPIC DATE CREATED AUTHOR AUTHOR'S ORGANIZ ATION 09/18/2023 [facility] REASON FOR VISIT (unrecogniz ed section and content) Reason Comments URI Reports chest conges tion, cough and fatigue. 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 This clinical summary was aggregated from multiple sources. Caution should be exercised in using it in the provision of clinical care. This summary normalizes information from multiple sources, and as a consequence, information in this document may materially change the coding, format and clinical context of patient data. In addition, data may be omitted in some cases. CLINICAL DECISIONS SHOULD BE BASED ON THE PRIMARY CLINICAL RECORDS. [facility] [employer] [facility]. provides no warranty or guarantee of the accuracy or completeness of information in this document.
[2023-09-19 14:10] LABS: Magnesium 2.2 mg/dL (1.8-2.4); Phosphorus 4.4 mg/dL (2.6-4.7)
[2023-09-19 14:14] LABS: Basophils Percent Auto 0.4 % (0.2-2.0); Eosinophils Absolute Auto 0.1 10^3/uL (0.0-0.7); Eosinophils Percent Auto 1.7 % (0.9-7.0); Hemoglobin 14.1 g/dL (14.0-18.0); Immature Granulocytes Abs Auto 0.01 10^3/uL (0.00-0.03); Immature Granulocytes Pct Auto 0.2 % (0.0-0.5); Lymphocytes Absolute Auto 1.4 10^3/uL (1.2-3.8); Lymphocytes Percent Auto 26.9 % (20.5-60.0); Mean Corpuscular HGB Conc 32.8 g/dL (29.9-35.2); Mean Corpuscular Hemoglobin 30.4 pg (25.9-34.0); Mean Corpuscular Volume 92.7 fL (80.0-94.0); Mean Platelet Volume 10.4 fL (9.5-13.5); Monocytes Absolute Auto 0.5 10^3/uL (0.3-0.8); Monocytes Percent Auto 9.4 % (1.7-12.0); Neutrophils Absolute Auto 3.2 10^3/uL (1.4-6.5); Neutrophils Percent Auto 61.4 % (43.0-75.0); Platelet Count 225 10^3/uL (150-450); Red Blood Count 4.64 10^6/uL (4.70-6.10); Red Cell Distribution Width 12.5 % (11.0-15.0); White Blood Count 5.2 10^3/uL (4.0-11.0)
[2023-09-19 14:43] LABS: Percent Iron Saturation 40.3 %
[2023-09-20 04:07] LABS: Homocyst(e)ine 10.9 umol/L (0.0-14.5); Transferrin 291 mg/dL (177-329)
[2023-09-24 06:09] LABS: Methylmalonic Acid, Serum 353 nmol/L (0-378)
== END 2023-09-19 13:33 | disposition home or self-care (01) ==
LOC: LAB 13:36
PROVIDERS: Visit Provider Psychiatry & Neurology Neurology
DX: G62.9 Polyneuropathy, unspecified (principal); R79.89 Other specified abnormal findings of blood chemistry; Z11.2 Encounter for screening for other bacterial diseases
CPT/HCPCS: 36415; 82310; 82607; 82728; 82746; 83090; 83540; 83550; 83735; 83921; 84100; 84466; 85025